=== PATIENT | male | born 1955 | race Caucasian/White ===

== ENCOUNTER 2024-07-07 20:13 | Inpatient (IN) | payer MEDICARE ==
[~2024-07-07] VITALS: Ht 175.3 cm; Wt 131.5 kg
[2024-07-07 20:48] VITALS: TEMP 100.2
[2024-07-07] MEDS: ACETAMINOPHEN 325 MG TAB PO ONE (21:21)
[2024-07-07 21:23] LABS: BASOPHILS % 0.4 % (0.0-1.0); EOSINOPHILS # (AUTO) 0.1 (0.0-0.4); EOSINOPHILS % 2.7 % (0.0-6.0); HEMATOCRIT 33.6 % (38.2-49.6); HEMOGLOBIN 10.4 g/dL (14.0-18.0); LYMPHOCYTES # (AUTO) 0.7 (1.0-3.2); LYMPHOCYTES % 16.2 % (18.0-39.1); MEAN CORPUSCULAR HEMOGLOBIN 29.5 pg (28-32); MEAN CORPUSCULAR VOLUME 95.5 fL (81-99); MONOCYTES # (AUTO) 0.5 (0.2-0.8); NEUTROPHILS # (AUTO) 3.2 (2.1-6.9); NEUTROPHILS % 70.3 % (38.7-80.0); PLATELET COUNT 188 x10e3/uL (140-360); RED BLOOD COUNT 3.52 x10e6/uL (4.3-5.7); WHITE BLOOD COUNT 4.52 x10e3/uL (4.8-10.8)
[2024-07-07 21:31] LABS: PROTHROMBIN TIME 13.7 seconds (11.9-14.5)
[2024-07-07 21:32] LABS: PARTIAL THROMBOPLASTIN TIME 28.8 seconds (23.8-35.5)
[2024-07-07 21:39] LABS: ALBUMIN 3.3 g/dL (3.5-5.0); ALBUMIN/GLOBULIN RATIO 0.8 (0.8-2.0); ANION GAP 12.9 mmol/L (8-16); BILIRUBIN,TOTAL 0.5 mg/dL (0.2-1.2); CALCIUM 8.8 mg/dL (8.4-10.2); CREATININE, SERUM 1.04 mg/dL (0.72-1.25); POTASSIUM 3.9 mmol/L (3.5-5.1); TOTAL PROTEIN 7.2 g/dL (6.5-8.1)
[2024-07-07 21:51] LABS: BILIRUBIN,URINE NEGATIVE (NEGATIVE); CLARITY,URINE CLEAR (CLEAR); COLOR,URINE YELLOW (YELLOW); GLUCOSE, URINE NEGATIVE (NEGATIVE); KETONES,URINE NEGATIVE (NEGATIVE); LEUKOCYTE ESTERASE ,URINE TRACE (NEGATIVE); NITRITE,URINE NEGATIVE (NEGATIVE); PH,URINE 7.5 (5 - 7); PROTEIN,URINE DIPSTICK NEGATIVE (NEGATIVE); URINE UROBILINOGEN 4 mg/dL (0.2 - 1)
[2024-07-07 21:55] LABS: BACTERIA,URINE FEW /HPF; EPITHELIAL CELLS,URINE MODERATE /LPF; WBC,URINE (MAN) >50 /HPF (0-5)
[2024-07-07] MEDS ORDERED: SODIUM CHLORIDE FLUSH 10 ML SYR INJ PRN (23:15)
[2024-07-07] MEDS ORDERED: ONDANSETRON HCL INJ 2MG/ML 2ML 2 MG/ML VIAL IV PRN (23:15)
[2024-07-07] MEDS ORDERED: FUROSEMIDE INJ 10 MG/ML 4 ML VIAL IV ONE (23:15)
[2024-07-07] MEDS: LEVOFLOXACIN 750MG/D5W 150ML 150 ML IV SCH (23:40)
[2024-07-07] MEDS: FUROSEMIDE INJ 10 MG/ML 4 ML VIAL IV ONE (23:41)
[2024-07-07 23:55] VITALS: PULSE 97; RESP 24
[2024-07-08] VITALS (12 sets, daily range): BP systolic 125–155; BP diastolic 55–83; PULSE 85–95; RESP 18–20; TEMP 97.5–99.6; O2SAT 98–100
[2024-07-08] MEDS ORDERED: bp medication (03:08)
[2024-07-08] MEDS ORDERED: LASIX40 MG PO (03:08)
[2024-07-08 10:51] LABS: BASOPHILS % 0.8 % (0.0-1.0); EOSINOPHILS # (AUTO) 0.1 (0.0-0.4); EOSINOPHILS % 3.8 % (0.0-6.0); HEMATOCRIT 32.7 % (38.2-49.6); HEMOGLOBIN 10.5 g/dL (14.0-18.0); LYMPHOCYTES # (AUTO) 0.7 (1.0-3.2); LYMPHOCYTES % 19.3 % (18.0-39.1); MEAN CORPUSCULAR HEMOGLOBIN 30.1 pg (28-32); MEAN CORPUSCULAR HGB CONC 32.1 g/dL (31-35); MEAN CORPUSCULAR VOLUME 93.7 fL (81-99); MONOCYTES # (AUTO) 0.6 (0.2-0.8); MONOCYTES % 16.3 % (4.4-11.3); NEUTROPHILS # (AUTO) 2.2 (2.1-6.9); NEUTROPHILS % 59.5 % (38.7-80.0); PLATELET COUNT 175 x10e3/uL (140-360); RED BLOOD COUNT 3.49 x10e6/uL (4.3-5.7); RED CELL DISTRIBUTION WIDTH 14.7 % (11.7-14.4); WHITE BLOOD COUNT 3.68 x10e3/uL (4.8-10.8)
[2024-07-08 11:19] LABS: ALBUMIN/GLOBULIN RATIO 0.8 (0.8-2.0); ANION GAP 12.8 mmol/L (8-16); BILIRUBIN,TOTAL 0.5 mg/dL (0.2-1.2); CALCIUM 8.6 mg/dL (8.4-10.2); CREATININE, SERUM 1.02 mg/dL (0.72-1.25); POTASSIUM 3.8 mmol/L (3.5-5.1)
[2024-07-08] MEDS ORDERED: POLYETHYLENE GLYCOL 3350 17 GM PACK PO PRN (16:00)
[2024-07-08] MEDS ORDERED: HYDRALAZINE HCL 20 MG/ML VIAL IV PRN (16:00)
[2024-07-08] MEDS: DOCUSATE SODIUM 100 MG CAP PO SCH (17:00)
[2024-07-08] MEDS: FUROSEMIDE INJ 10 MG/ML 4 ML VIAL IV SCH (21:56)
[2024-07-08] MEDS: SODIUM CHLORIDE 0.9% 250ML 250 ML ONE (23:20)
[2024-07-09] VITALS (10 sets, daily range): BP systolic 121–137; BP diastolic 63–88; PULSE 85–97; RESP 18–20; TEMP 97.7–98.4; O2SAT 96–100
[2024-07-09 05:52] LABS: BASOPHILS % 0.6 % (0.0-1.0); EOSINOPHILS # (AUTO) 0.2 (0.0-0.4); EOSINOPHILS % 5.2 % (0.0-6.0); HEMATOCRIT 35.1 % (38.2-49.6); HEMOGLOBIN 10.7 g/dL (14.0-18.0); LYMPHOCYTES # (AUTO) 0.8 (1.0-3.2); MEAN CORPUSCULAR HEMOGLOBIN 29.2 pg (28-32); MEAN CORPUSCULAR HGB CONC 30.5 g/dL (31-35); MEAN CORPUSCULAR VOLUME 95.9 fL (81-99); MONOCYTES # (AUTO) 0.6 (0.2-0.8); MONOCYTES % 16.3 % (4.4-11.3); NEUTROPHILS # (AUTO) 1.9 (2.1-6.9); NEUTROPHILS % 54.6 % (38.7-80.0); PLATELET COUNT 179 x10e3/uL (140-360); RED BLOOD COUNT 3.66 x10e6/uL (4.3-5.7); RED CELL DISTRIBUTION WIDTH 14.5 % (11.7-14.4); WHITE BLOOD COUNT 3.44 x10e3/uL (4.8-10.8)
[2024-07-09 06:29] LABS: ALBUMIN 2.9 g/dL (3.5-5.0); ALBUMIN/GLOBULIN RATIO 0.7 (0.8-2.0); ANION GAP 14.7 mmol/L (8-16); BILIRUBIN,TOTAL 0.4 mg/dL (0.2-1.2); CALCIUM 8.8 mg/dL (8.4-10.2); CHOL/HDL RATIO 3.7 (3.9-4.7); CREATININE, SERUM 0.92 mg/dL (0.72-1.25); MAGNESIUM 1.6 MG/DL (1.3-2.1); PHOSPHORUS 4.2 MG/DL (2.3-4.7); POTASSIUM 3.7 mmol/L (3.5-5.1); TOTAL PROTEIN 6.8 g/dL (6.5-8.1)
[2024-07-09 06:38] LABS: FREE T4 (FREE THYROXINE) 0.99 ng/dL (0.8-1.8); THYROID STIMULATING HORMONE 1.721 uIU/mL (0.350-4.940)
[2024-07-09] MEDS: MAGNESIUM SULFATE 2GM/50ML 50 ML IV ONE (09:22)
[2024-07-09] MEDS: FAMOTIDINE 20 MG TAB PO SCH (09:22)
[2024-07-09] MEDS: ENOXAPARIN SOD INJ 40 MG/0.4 ML SYR SC SCH (10:30)
[2024-07-10] VITALS (11 sets, daily range): BP systolic 109–129; BP diastolic 58–77; PULSE 80–93; RESP 16–20; TEMP 97.6–98.6; O2SAT 98–100
[2024-07-10 05:45] LABS: BASOPHILS % 0.3 % (0.0-1.0); EOSINOPHILS # (AUTO) 0.2 (0.0-0.4); EOSINOPHILS % 5.2 % (0.0-6.0); HEMATOCRIT 35.3 % (38.2-49.6); HEMOGLOBIN 10.9 g/dL (14.0-18.0); LYMPHOCYTES # (AUTO) 0.9 (1.0-3.2); LYMPHOCYTES % 27.1 % (18.0-39.1); MEAN CORPUSCULAR HEMOGLOBIN 29.2 pg (28-32); MEAN CORPUSCULAR HGB CONC 30.9 g/dL (31-35); MEAN CORPUSCULAR VOLUME 94.6 fL (81-99); MONOCYTES # (AUTO) 0.5 (0.2-0.8); NEUTROPHILS # (AUTO) 1.9 (2.1-6.9); NEUTROPHILS % 54.1 % (38.7-80.0); PLATELET COUNT 208 x10e3/uL (140-360); RED BLOOD COUNT 3.73 x10e6/uL (4.3-5.7); RED CELL DISTRIBUTION WIDTH 14.6 % (11.7-14.4); WHITE BLOOD COUNT 3.47 x10e3/uL (4.8-10.8)
[2024-07-10 06:41] LABS: ANION GAP 16.6 mmol/L (8-16); CREATININE, SERUM 1.09 mg/dL (0.72-1.25); MAGNESIUM 1.6 MG/DL (1.3-2.1); POTASSIUM 3.6 mmol/L (3.5-5.1)
[2024-07-10] MEDS: DOCUSATE SODIUM 100 MG CAP PO SCH (09:00)
[2024-07-10] MEDS: MAGNESIUM SULFATE 2GM/50ML 50 ML IV ONE (11:08)
[2024-07-10] MEDS: ASPIRIN 81 MG ENTERIC COATED PO SCH (11:09)
[2024-07-10] MEDS ORDERED: ONDANSETRON HCL 4 MG ORAL DISINTEGRATING TAB PO PRN (13:15)
[2024-07-10] MEDS ORDERED: LEVOFLOXACIN 250 MG TAB PO SCH (21:00)
[2024-07-11] VITALS (9 sets, daily range): BP systolic 99–128; BP diastolic 46–66; PULSE 65–95; RESP 18–20; TEMP 97.4–98.2; O2SAT 95–100
[2024-07-11 06:36] LABS: BASOPHILS % 0.9 % (0.0-1.0); EOSINOPHILS # (AUTO) 0.2 (0.0-0.4); EOSINOPHILS % 3.7 % (0.0-6.0); HEMATOCRIT 37.6 % (38.2-49.6); HEMOGLOBIN 11.6 g/dL (14.0-18.0); LYMPHOCYTES % 21.1 % (18.0-39.1); MEAN CORPUSCULAR HEMOGLOBIN 29.7 pg (28-32); MEAN CORPUSCULAR HGB CONC 30.9 g/dL (31-35); MEAN CORPUSCULAR VOLUME 96.4 fL (81-99); MONOCYTES # (AUTO) 0.6 (0.2-0.8); MONOCYTES % 13.8 % (4.4-11.3); NEUTROPHILS # (AUTO) 2.8 (2.1-6.9); NEUTROPHILS % 59.4 % (38.7-80.0); PLATELET COUNT 181 x10e3/uL (140-360); RED CELL DISTRIBUTION WIDTH 14.6 % (11.7-14.4); WHITE BLOOD COUNT 4.64 x10e3/uL (4.8-10.8)
[2024-07-11 07:19] LABS: CALCIUM 8.9 mg/dL (8.4-10.2); CREATININE, SERUM 1.04 mg/dL (0.72-1.25); MAGNESIUM 1.8 MG/DL (1.3-2.1)
[2024-07-11] MEDS: LINEZOLID 600 MG TAB PO SCH (10:51)
[2024-07-11] MEDS: TRIMETHOPRIM/SULFAMETHOXAZOLE 160-800 MG TAB PO SCH (21:08)
[2024-07-12] VITALS (10 sets, daily range): BP systolic 109–116; BP diastolic 48–87; PULSE 78–92; RESP 17–20; TEMP 97.2–98.4; O2SAT 95–100
[2024-07-13] VITALS (11 sets, daily range): BP systolic 103–125; BP diastolic 56–78; PULSE 74–92; RESP 14–20; TEMP 97.9–98.4; O2SAT 95–100
[2024-07-14] VITALS (9 sets, daily range): BP systolic 111–129; BP diastolic 59–67; PULSE 80–87; RESP 17–20; TEMP 97.2–98.7; O2SAT 96–100
[2024-07-14 06:03] LABS: BASOPHILS % 0.5 % (0.0-1.0); EOSINOPHILS # (AUTO) 0.2 (0.0-0.4); EOSINOPHILS % 2.3 % (0.0-6.0); HEMATOCRIT 35.4 % (38.2-49.6); HEMOGLOBIN 11.3 g/dL (14.0-18.0); LYMPHOCYTES # (AUTO) 0.9 (1.0-3.2); LYMPHOCYTES % 13.8 % (18.0-39.1); MEAN CORPUSCULAR HEMOGLOBIN 29.4 pg (28-32); MEAN CORPUSCULAR HGB CONC 31.9 g/dL (31-35); MEAN CORPUSCULAR VOLUME 91.9 fL (81-99); MONOCYTES # (AUTO) 0.8 (0.2-0.8); MONOCYTES % 12.6 % (4.4-11.3); NEUTROPHILS # (AUTO) 4.5 (2.1-6.9); NEUTROPHILS % 70.6 % (38.7-80.0); PLATELET COUNT 218 x10e3/uL (140-360); RED BLOOD COUNT 3.85 x10e6/uL (4.3-5.7); RED CELL DISTRIBUTION WIDTH 14.4 % (11.7-14.4); WHITE BLOOD COUNT 6.43 x10e3/uL (4.8-10.8)
[2024-07-14 06:23] LABS: BILIRUBIN,TOTAL 0.7 mg/dL (0.2-1.2); CREATININE, SERUM 1.28 mg/dL (0.72-1.25); MAGNESIUM 1.9 MG/DL (1.3-2.1); TOTAL PROTEIN 7.4 g/dL (6.5-8.1)
[2024-07-14 06:28] LABS: ALBUMIN 2.9 g/dL (3.5-5.0); ALBUMIN/GLOBULIN RATIO 0.6 (0.8-2.0)
[2024-07-14] MEDS: POLYETHYLENE GLYCOL 3350 17 GM PACK PO SCH (09:26)
[2024-07-14] MEDS ORDERED: ASPIRIN EC81 MG PO (10:23)
[2024-07-14] MEDS ORDERED: Docusate Sodium PO (10:23)
[2024-07-14] MEDS ORDERED: Trimethoprim/Sulfamethoxazole PO (10:23)
[2024-07-14] MEDS ORDERED: ACETAMINOPHEN325 M1 PO (10:23)
[2024-07-14] MEDS ORDERED: FAMOTIDINE20 MG PO (10:23)
[2024-07-14] MEDS ORDERED: ONDANSETRON ODT4 MG PO (10:23)
[2024-07-14] MEDS ORDERED: MIRALAX17 GM PO (10:27)
[2024-07-14] MEDS: ACETAMINOPHEN 325 MG TAB PO PRN (12:02)
== END 2024-07-14 16:32 | DRG 603 ==
LOC: ER 20:56 → ERHOLD 23:09 → MED/SURG2 23:57 → OBSVTOIN 07-09 09:30
PROVIDERS: ADMIT Internal Medicine; ATTEND Internal Medicine
DX: L03.115 Cellulitis of right lower limb (principal); N39.0 Urinary tract infection, site not specified; I50.32 Chronic diastolic (congestive) heart failure; Z59.02 Unsheltered homelessness; Z68.41 Body mass index [BMI] 40.0-44.9, adult; I11.0 Hypertensive heart disease with heart failure; E66.01 Morbid (severe) obesity due to excess calories; L03.116 Cellulitis of left lower limb; R06.00 Dyspnea, unspecified; I89.0 Lymphedema, not elsewhere classified; E78.5 Hyperlipidemia, unspecified; J44.9 Chronic obstructive pulmonary disease, unspecified; E83.42 Hypomagnesemia; M17.0 Bilateral primary osteoarthritis of knee; B96.20 Unspecified Escherichia coli [E. coli] as the cause of diseases classified elsewhere; Z11.52 Encounter for screening for COVID-19; R26.2 Difficulty in walking, not elsewhere classified; H91.93 Unspecified hearing loss, bilateral; Z79.82 Long term (current) use of aspirin; Z91.040 Latex allergy status; Z88.1 Allergy status to other antibiotic agents; Z85.46 Personal history of malignant neoplasm of prostate
CPT/HCPCS: 36415; 71045; 71260; 80048; 80053; 80061; 81001; 83036; 83605; 83735; 83880; 84100; 84439; 84443; 84484; 85025; 85610; 85730; 87040; 87086; 87186; 93005; 93925; 93970; 94799; 99252; 99284; G0378; J1650; J1940; J3475; J7050; U0002